=== PATIENT | male | born 1955 | race Caucasian/White ===

== ENCOUNTER 2018-12-01 13:06 | Inpatient (IN) | payer BC, MEDICARE ==
[2018-12-01 15:31] LABS: BASO % 0.4 % (0.0-2.0); EOS # 0.1 K/uL (0.0-0.7); HEMOGLOBIN 7.4 g/dL (12.0-18.0); LYMPH # 1.8 K/uL (1.0-4.3); LYMPH % 26.3 % (20.0-40.0); MEAN CELL VOLUME 100.1 fL (80.0-94.0); MEAN CORPUSCULAR HEMOGLOBIN 33.7 pg (27.0-31.0); MEAN CORPUSCULAR HGB CONC 33.7 g/dL (33.0-37.0); MEAN PLATELET VOLUME 6.5 fL (7.2-11.7); MONO # 0.9 K/uL (0.0-0.8); MONO % 13.3 % (0.0-10.0); RBC 2.19 Mil/uL (4.40-5.90); WHITE BLOOD COUNT 6.8 K/uL (4.8-10.8)
[2018-12-01 16:00] LABS: B-TYPE NATRIURETIC PEPTIDE 127 pg/mL (0-900)
[2018-12-01 16:03] LABS: GRANULAR CAST 3 /lpf (0-1); SQUAMOUS EPITHIAL < 1 /hpf (0-5); URINE BILIRUBIN NEGATIVE (NEGATIVE); URINE BLOOD 2+ (NEGATIVE); URINE CLARITY Hazy (Clear); URINE COLOR Yellow (YELLOW); URINE GLUCOSE (UA) NORMAL (Normal); URINE LEUKOCYTE ESTERASE NEG Leu/uL (Negative); URINE PROTEIN 2+ mg/dL (NEGATIVE); URINE UROBILINOGEN NORMAL mg/dL (0.2-1.0)
[2018-12-01 16:07] LABS: ALT/SGPT 7 U/L (21-72); AST/SGOT 39 U/L (17-59); BLOOD UREA NITROGEN 50 mg/dL (9-20); CALCIUM 9.6 mg/dl (8.6-10.4); GFR NON-AFRICAN AMERICAN 13
[2018-12-01 16:15] LABS: ALB/GLOB RATIO 0.5 (1.0-2.1)
--- NOTE | 2018-12-01 16:18 | RAD ---
Date of service: 12/01/2018 PROCEDURE: CHEST RADIOGRAPH, 1 VIEW HISTORY: SOB COMPARISON: None available. FINDINGS: LUNGS: The lungs are well inflated and clear. PLEURA: No pneumothorax or pleural effusion. CARDIOVASCULAR: The heart is normal in size. No aortic atherosclerotic calcifications present. OSSEOUS STRUCTURES: Within normal limits for the patient's age. VISUALIZED UPPER ABDOMEN: Normal. OTHER FINDINGS: None. IMPRESSION: No active pulmonary disease.
--- NOTE | 2018-12-01 16:59 | C.PDOC ---
History Of Present Illness 63 y/o male presents to the ER for evaluation of possible acute renal failure. Patient states that he had bloodwork done yesterday. Patient reports that he went to his PMD Dr. Faustin and he found that he had abnormal bloodwork. He notes that referred him to the ER for acute renal failure.Denies having fever,chills, CP,SOB, nausea, and vomiting. Time Seen by Provider: 12/01/18 14:41 Chief Complaint (Nursing): Medical Clearance History Per: Patient History/Exam Limitations: no limitations Onset/Duration Of Symptoms: Days Current Symptoms Are (Timing): Still Present Severity: Moderate Past Medical History Reviewed: Historical Data, Nursing Documentation, Vital Signs Vital Signs: Last Vital Signs Temp 98.4 F 12/01/18 13:19 Pulse 88 12/01/18 16:14 Resp 18 12/01/18 16:14 BP 163/88 H 12/01/18 16:14 Pulse Ox 100 12/01/18 16:14 - Medical History PMH: No Chronic Diseases Surgical History: Endoscopy Family History: States: No Known Family Hx - Social History Hx Alcohol Use: No Hx Substance Use: No - Immunization History Hx Tetanus Toxoid Vaccination: No Hx Influenza Vaccination: No Hx Pneumococcal Vaccination: No Review Of Systems Except As Marked, All Systems Reviewed And Found Negative. Constitutional: Negative for: Fever, Chills Cardiovascular: Negative for: Chest Pain Respiratory: Negative for: Shortness of Breath Gastrointestinal: Negative for: Nausea, Vomiting Physical Exam - Physical Exam Appears: Non-toxic, No Acute Distress Skin: Normal Color, Warm, Dry Head: Atraumatic, Normacephalic Eye(s): bilateral: Normal Inspection, PERRL, EOMI Nose: Normal Oral Mucosa: Moist Neck: Supple Chest: Symmetrical Cardiovascular: Rhythm Regular Respiratory: Normal Breath Sounds, No Rales, No Rhonchi, No Wheezing Gastrointestinal/Abdominal: Normal Exam, Soft, No Tenderness, No Guarding, No Rebound Extremity: Normal ROM Neurological/Psych: Oriented x3, Normal Speech ED Course And Treatment - Laboratory Results Result Diagrams: 12/01/18 15:26 12/01/18 15:26 Lab Results: Troponin I < 0.0120 ng/mL (0.00-0.120) 12/01/18 15:26 NT-Pro-B Natriuret Pep 127 pg/mL (0-900) 12/01/18 15:26 Total Bilirubin 0.5 mg/dL (0.2-1.3) 12/01/18 15:26 AST 39 U/L (17-59) 12/01/18 15:26 ALT 7 U/L (21-72) L 12/01/18 15:26 Alkaline Phosphatase 61 U/L (38-126) 12/01/18 15:26 Total Protein > 11.0 g/dL (6.3-8.3) H 12/01/18 15:26 Albumin 4.0 g/dL (3.5-5.0) 12/01/18 15:26 Globulin 8.4 gm/dL (2.2-3.9) H 12/01/18 15:26 Albumin/Globulin Ratio 0.5 (1.0-2.1) L 12/01/18 15:26 Urine Color Yellow (YELLOW) 12/01/18 15:49 Urine Clarity Hazy (Clear) 12/01/18 15:49 Urine pH 5.0 (5.0-8.0) 12/01/18 15:49 Ur Specific [place] 1.014 (1.003-1.030) 12/01/18 15:49 Urine Protein 2+ mg/dL (NEGATIVE) H 12/01/18 15:49 Urine Glucose (UA) Normal mg/dL (Normal) 12/01/18 15:49 Urine Ketones Negative mg/dL (NEGATIVE) 12/01/18 15:49 Urine Blood 2+ (NEGATIVE) H 12/01/18 15:49 Urine Nitrate Negative (NEGATIVE) 12/01/18 15:49 Urine Bilirubin Negative (NEGATIVE) 12/01/18 15:49 Urine Urobilinogen Normal mg/dL (0.2-1.0) 12/01/18 15:49 Ur Leukocyte Esterase Neg Javon/uL (Negative) 12/01/18 15:49 Urine WBC (Auto) 4 /hpf (0-5) 12/01/18 15:49 Urine RBC (Auto) 19 /hpf (0-3) H 12/01/18 15:49 Ur Squamous Epith Cells < 1 /hpf (0-5) 12/01/18 15:49 Granular Casts (Auto) 3 /lpf (0-1) 12/01/18 15:49 ECG: Interpreted By Me, Viewed By Me ECG Rhythm: Sinus Rhythm Rate From EC O2 Sat by Pulse Oximetry: 100 (RA) Pulse Ox Interpretation: Normal Medical Decision Making Medical Decision Making: Plan: --Labs --UA --ECG --CXR Updates: 1654: Called . 1719: Called Dr. Faustin again. 1746: Called for the third time. 1753: agrees to accept patient. Said if calls back to switch back to ' service. 1821: Dr. Faustin called back and agrees to admit patient. 1823: Dr. Louise informed that patient will be switched to Dr. Faustin' service Disposition - Disposition Disposition: HOSPITALIZED Disposition Time: 17:55 Condition: STABLE - Clinical Impression Clinical Impression: ARF (acute renal failure), Anemia - Scribe Statement The provider has reviewed the documentation as recorded by the Karlaibdalila Lord Provider Attestation: All medical record entries made by the Karlaibe were at my direction and personally dictated by me. I have reviewed the chart and agree that the record accurately reflects my personal performance of the history, physical exam, medical decision making, and the department course for this patient. I have also personally directed, reviewed, and agree with the discharge instructions and disposition.
[2018-12-01 19:48] VITALS: RESP 20
--- NOTE | 2018-12-02 08:50 | CP.PCM.HP ---
History of Present Illness - History of Present Illness History of Present Illness: CC: Abn labs 63 y/o male with no medical check up. Patient occasional fatigue and SOB when he climb stairs. he was seen for physical and noted to have Hg of 7 and gopi inc Crea. Pt was advise ER eval Present on Admission - Present on Admission Any Indicators Present on Admission: Yes History of DVT/PE: No History of Uncontrolled Diabetes: No Urinary Catheter: No Decubitus Ulcer Present: No Review of Systems - Review of Systems Systems not reviewed;Unavailable: Acuity of Condition - Constitutional Constitutional: absent: Anorexia, Headache, Increased Appetite, Night Sweats, Sleep Apnea - EENT Eyes: absent: Change in Vision, Exophthalmos, Pain, Spots in Vision Ears: absent: Decreased Hearing, Tinnitus, Disequilibrium, Dizziness Nose/Mouth/Throat: absent: Epistaxis, Nasal Congestion, Nose Pain, Post Nasal Drip, Change in Voice, Dysphagia, Mouth Pain - Cardiovascular Cardiovascular: absent: Chest Pain, Diaphoresis, Dyspnea, Edema - Respiratory Respiratory: absent: Cough, Hemoptysis, Snoring, Chest Congestion, Excessive Mucous Production, Change in Mucous Color - Gastrointestinal Gastrointestinal: absent: Abdominal Pain, Diarrhea, Dyspepsia, Dysphagia, Heartburn - Genitourinary Genitourinary: absent: Dysuria, Pyuria, Nocturia, Urinary Hesitance - Musculoskeletal Musculoskeletal: Tingling. absent: Abnormal Gait, Back Pain, Joint Swelling, Loss of Height, Muscle Weakness, Myalgias - Integumentary Integumentary: absent: Dry Skin - Neurological Neurological: absent: Abnormal Hearing, Confusion, Focal Weakness, Loss of Vision, Restless Legs Past Patient History - Infectious Disease Hx of Infectious Diseases: None - Past Medical History & Family History Past Medical History?: Yes - Past Social History Smoking Status: Former Smoker - MUSCULOSKELETAL/RHEUMATOLOGICAL Hx Falls: No - PSYCHIATRIC Hx Substance Use: No - SURGICAL HISTORY Hx Surgeries: Yes - ANESTHESIA Hx Anesthesia: Yes Hx Anesthesia Reactions: No Meds Allergies/Adverse Reactions: Allergies Allergy/AdvReac Type Severity Reaction Status Date / Time No Known Allergies Allergy Verified 12/01/18 13:21 Physical Exam - Constitutional Appears: Well - Eye Exam Eye Exam: Normal appearance - ENT Exam ENT Exam: Mucous Membranes Moist - Neck Exam Neck exam: Positive for: Full Rom. Negative for: Lymphadenopathy, Normal Inspection, Tenderness - Respiratory Exam Respiratory Exam: Clear to Auscultation Bilateral. absent: Rales, Rhonchi, Wheezes - Cardiovascular Exam Cardiovascular Exam: REGULAR RHYTHM, +S1, +S2. absent: Gallop, JVD, Systolic Murmur - GI/Abdominal Exam GI & Abdominal Exam: Soft. absent: Mass, Tenderness - Neurological Exam Neurological exam: Alert, CN II-XII Intact, Oriented x3 Results - Vital Signs Recent Vital Signs: Last Vital Signs Temp 98.1 F 12/02/18 08:00 Pulse 77 12/02/18 08:00 Resp 20 12/02/18 08:00 BP 156/78 H 12/02/18 08:00 Pulse Ox 97 12/02/18 08:00 - Labs Result Diagrams: 12/01/18 15:26 12/01/18 15:26 Labs: Laboratory Results - last 24 hr 12/01/18 12/01/18 12/01/18 15:26 15:26 15:49 WBC 6.8 RBC 2.19 L Hgb 7.4 L Hct 21.9 L MCV 100.1 H MCH 33.7 H MCHC 33.7 RDW 14.0 Plt Count 301 MPV 6.5 L Neut % (Auto) 58.0 Lymph % (Auto) 26.3 [place] % (Auto) 13.3 H Eos % (Auto) 2.0 Baso % (Auto) 0.4 Neut # (Auto) 4.0 Lymph # (Auto) 1.8 [place] # (Auto) 0.9 H Eos # (Auto) 0.1 Baso # (Auto) 0.0 Sodium 138 Potassium 4.7 Chloride 109 H Carbon Dioxide 22 Anion Gap 11 BUN 50 H Creatinine 4.7 H Est GFR ( Amer) 15 Est GFR (Non-Af Amer) 13 Random Glucose 134 H Calcium 9.6 Total Bilirubin 0.5 AST 39 ALT 7 L Alkaline Phosphatase 61 Troponin I < 0.0120 NT-Pro-B Natriuret Pep 127 Total Protein > 11.0 H Albumin 4.0 Globulin 8.4 H Albumin/Globulin Ratio 0.5 L Urine Color Yellow Urine Clarity Hazy Urine pH 5.0 Ur Specific [place] 1.014 Urine Protein 2+ H Urine Glucose (UA) Normal Urine Ketones Negative Urine Blood 2+ H Urine Nitrate Negative Urine Bilirubin Negative Urine Urobilinogen Normal Ur Leukocyte Esterase Neg Urine WBC (Auto) 4 Urine RBC (Auto) 19 H Ur Squamous Epith Cells < 1 Granular Casts (Auto) 3 - EKG Data EKG Interpreted by: Myself EKG shows normal: Sinus rhythm Rate: Normal Assessment & Plan - Assessment and Plan (Free Text) Assessment: Symptomatic anemia; ESRD ? etio Await GI/ renal opinion DVT prophy
[2018-12-02 11:39] LABS: BASO % 0.4 % (0.0-2.0); EOS # 0.2 K/uL (0.0-0.7); EOS % 2.1 % (0.0-4.0); HEMOGLOBIN 7.4 g/dL (12.0-18.0); LYMPH # 2.7 K/uL (1.0-4.3); MEAN CELL VOLUME 99.6 fL (80.0-94.0); MEAN CORPUSCULAR HEMOGLOBIN 34.4 pg (27.0-31.0); MEAN CORPUSCULAR HGB CONC 34.5 g/dL (33.0-37.0); MEAN PLATELET VOLUME 6.5 fL (7.2-11.7); MONO % 12.9 % (0.0-10.0); NEUT # 3.8 K/uL (1.8-7.0); NEUT % 49.6 % (50.0-75.0); NRBC % 0.2 % (0.0-2.0); RBC 2.15 Mil/uL (4.40-5.90); RED CELL DISTRIBUTION WIDTH 13.7 % (11.5-14.5); WHITE BLOOD COUNT 7.7 K/uL (4.8-10.8)
[2018-12-02 11:46] LABS: CALCIUM 9.2 mg/dl (8.6-10.4)
--- NOTE | 2018-12-02 12:25 | CP.PCM.CON ---
History of Present Illness - History of Present Illness History of Present Illness: CC: anemia HPI: GI consult requested for new onset anemia and renal failure. Patient denies change in bowel habits, blood in stool, abdominal pain. Had Colonoscopy "a long time ago" . Denies any medical history. Fair historian. Anemia is macrocytic. Review of Systems - Review of Systems All systems: reviewed and no additional remarkable complaints except (leg pain w hen walking upstairs) Past Patient History - Infectious Disease Hx of Infectious Diseases: None - Past Medical History & Family History Past Medical History?: Yes - Past Social History Smoking Status: Former Smoker Alcohol: None - CARDIAC Hx Cardiac Disorders: No Hx Heart Attack: No - PULMONARY Hx Respiratory Disorders: No - NEUROLOGICAL HX Cerebrovascular Accident: No - HEMATOLOGICAL/ONCOLOGICAL Hx Anemia: No - MUSCULOSKELETAL/RHEUMATOLOGICAL Hx Falls: No - GASTROINTESTINAL Hx Gastrointestinal Disorders: No - PSYCHIATRIC Hx Substance Use: No - SURGICAL HISTORY Hx Surgeries: Yes (thumb surgery, pt can not elaborate) - ANESTHESIA Hx Anesthesia: Yes Hx Anesthesia Reactions: No Meds Allergies/Adverse Reactions: Allergies Allergy/AdvReac Type Severity Reaction Status Date / Time No Known Allergies Allergy Verified 12/01/18 13:21 - Medications Medications: Current Medications Heparin Sodium (Porcine) (Heparin) 5,000 units SC Q8 ESPERANZA Rosuvastatin Calcium (Crestor) 10 mg PO HS ESPERANZA Physical Exam - Constitutional Appears: Well, No Acute Distress - Head Exam Head Exam: ATRAUMATIC, NORMOCEPHALIC - Eye Exam Eye Exam: absent: Scleral icterus - Neck Exam Neck exam: Positive for: Normal Inspection - Respiratory Exam Respiratory Exam: Clear to Auscultation Bilateral - Cardiovascular Exam Cardiovascular Exam: REGULAR RHYTHM - GI/Abdominal Exam GI & Abdominal Exam: Soft. absent: Organomegaly, Tenderness - Rectal Exam Rectal Exam: Deferred - Extremities Exam Extremities exam: Positive for: normal inspection - Neurological Exam Neurological exam: Alert, Oriented x3 - Psychiatric Exam Psychiatric exam: Normal Affect, Normal Mood - Skin Skin Exam: Normal Color Results - Vital Signs Recent Vital Signs: Last Vital Signs Temp 98.1 F 12/02/18 08:00 Pulse 77 12/02/18 08:00 Resp 20 12/02/18 08:00 BP 156/78 H 12/02/18 08:00 Pulse Ox 97 12/02/18 08:00 - Labs Result Diagrams: 12/02/18 11:24 12/02/18 11:24 Labs: Laboratory Results - last 24 hr 12/01/18 12/01/18 12/01/18 15:26 15:26 15:49 WBC 6.8 RBC 2.19 L Hgb 7.4 L Hct 21.9 L MCV 100.1 H MCH 33.7 H MCHC 33.7 RDW 14.0 Plt Count 301 MPV 6.5 L Neut % (Auto) 58.0 Lymph % (Auto) 26.3 [place] % (Auto) 13.3 H Eos % (Auto) 2.0 Baso % (Auto) 0.4 Neut # (Auto) 4.0 Lymph # (Auto) 1.8 [place] # (Auto) 0.9 H Eos # (Auto) 0.1 Baso # (Auto) 0.0 Sodium 138 Potassium 4.7 Chloride 109 H Carbon Dioxide 22 Anion Gap 11 BUN 50 H Creatinine 4.7 H Est GFR ( Amer) 15 Est GFR (Non-Af Amer) 13 Random Glucose 134 H Calcium 9.6 Total Bilirubin 0.5 AST 39 ALT 7 L Alkaline Phosphatase 61 Troponin I < 0.0120 NT-Pro-B Natriuret Pep 127 Total Protein > 11.0 H Albumin 4.0 Globulin 8.4 H Albumin/Globulin Ratio 0.5 L Urine Color Yellow Urine Clarity Hazy Urine pH 5.0 Ur Specific [place] 1.014 Urine Protein 2+ H Urine Glucose (UA) Normal Urine Ketones Negative Urine Blood 2+ H Urine Nitrate Negative Urine Bilirubin Negative Urine Urobilinogen Normal Ur Leukocyte Esterase Neg Urine WBC (Auto) 4 Urine RBC (Auto) 19 H Ur Squamous Epith Cells < 1 Granular Casts (Auto) 3 12/02/18 12/02/18 11:24 11:24 WBC 7.7 RBC 2.15 L Hgb 7.4 L Hct 21.5 L MCV 99.6 H MCH 34.4 H MCHC 34.5 RDW 13.7 Plt Count 283 MPV 6.5 L Neut % (Auto) 49.6 L Lymph % (Auto) 35.0 [place] % (Auto) 12.9 H Eos % (Auto) 2.1 Baso % (Auto) 0.4 Neut # (Auto) 3.8 Lymph # (Auto) 2.7 [place] # (Auto) 1.0 H Eos # (Auto) 0.2 Baso # (Auto) 0.0 Sodium 137 Potassium 4.5 Chloride 106 Carbon Dioxide 26 Anion Gap 10 BUN 47 H Creatinine 4.4 H Est GFR ( Amer) 16 Est GFR (Non-Af Amer) 14 Random Glucose 109 Calcium 9.2 Total Bilirubin AST ALT Alkaline Phosphatase Troponin I NT-Pro-B Natriuret Pep Total Protein Albumin Globulin Albumin/Globulin Ratio Urine Color Urine Clarity Urine pH Ur Specific [place] Urine Protein Urine Glucose (UA) Urine Ketones Urine Blood Urine Nitrate Urine Bilirubin Urine Urobilinogen Ur Leukocyte Esterase Urine WBC (Auto) Urine RBC (Auto) Ur Squamous Epith Cells Granular Casts (Auto) Assessment & Plan (1) ARF (acute renal failure) Assessment and Plan: await renal consult Status: Acute (2) Anemia Assessment and Plan: Likely anemia of chronic disease, renal failure. Does not appear to be an iron deficiency anemia Rec: Check stool occult blood and iron indices, reticulocyte count Check B12 and Folate levels Depending on results of above, pt may need GI workuip or Hematology consult Status: Acute - Date & Time Date: 12/02/18 Time: 12:29
--- NOTE | 2018-12-02 13:23 | CP.PCM.CON ---
History of Present Illness - History of Present Illness History of Present Illness: 63 y/o male presents to the ER for evaluation of possible acute renal failure. Patient states that he had bloodwork done yesterday. Patient reports that he went to his PMD Dr. Faustin and he found that he had abnormal bloodwork. He notes that referred him to the ER for acute renal failure.Denies having fever,chills, CP,SOB, nausea, and vomiting. No dysuria, hematuria Denies significant PMH- no HTN, DM, proteinuria No PSH Social- former smoking; denies ETOH, illicits FH- no CKD ROS- recent increase in fatigue, cramps on climbing stairs; otherwise negative Meds- none Review of Systems - Constitutional Constitutional: Fatigue, Weakness - EENT Eyes: absent: As Per HPI, Blind Spots, Blurred Vision, Change in Vision, Decreased Night Vision, Diplopia, Discharge, Dry Eye, Exophthalmos, Floaters, Irritation, Itchy Eyes, Loss of Peripheral Vision, Pain, Photophobia, Requires Corrective Lenses, Sees Flashes, Spots in Vision, Tunnel Vision, Other Visual Disturbances, Loss of Vision, Other Ears: absent: As Per HPI, Decreased Hearing, Ear Discharge, Ear Pain, Tinnitus, Abnormal Hearing, Disequilibrium, Dizziness, Other Nose/Mouth/Throat: absent: As Per HPI, Epistaxis, Nasal Congestion, Nasal Discharge, Nasal Obstruction, Nasal Trauma, Nose Pain, Post Nasal Drip, Sinus Pain, Sinus Pressure, Bleeding Gums, Change in Voice, Dental Pain, Dry Mouth, Dysphagia, Halitosis, Hoarsness, Lip Swelling, Mouth Lesions, Mouth Pain, Odynophagia, Sore Throat, Throat Swelling, Tongue Swelling, Facial Pain, Neck Pain, Neck Mass, Other - Cardiovascular Cardiovascular: Dyspnea on Exertion - Respiratory Respiratory: Dyspnea on Exertion - Gastrointestinal Gastrointestinal: absent: As Per HPI, Abdominal Pain, Belching, Bloating, Change in Bowel Habits, Change in Stool Character, Coffee Ground Emesis, Constipation, Cramping, Diarrhea, Dyspepsia, Dysphagia, Early Satiety, Excessive Flatus, Fecal Incontinence, Heartburn, Hematemesis, Hematochezia, Loose Stools, Melena, Nausea, Odynophagia, Temesmus, Vomiting, Other - Genitourinary Genitourinary: absent: As Per HPI, Change in Urinary Stream, Difficulty Urinating, Dysuria, Flank Pain, Hematuria, Pyuria, Nocturia, Urinary Incontinence, Urinary Frequency, Urinary Hesitance, Urinary Urgency, Voiding Freq/Small Amts, Freq UTI, Hx Renal/Bladder Calculi, Hx /Renal Surgery, Bladder Distension, Other - Musculoskeletal Musculoskeletal: Muscle Cramps, Muscle Weakness, Myalgias Past Patient History - Infectious Disease Hx of Infectious Diseases: None - Past Medical History & Family History Past Medical History?: Yes Past Family History: Reviewed and not pertinent - Past Social History Smoking Status: Former Smoker Chewing Tobacco Use: No Cigar Use: No Alcohol: None Drugs: Denies Home Situation {Lives}: With Family Domestic Violence: Negative - CARDIAC Hx Cardiac Disorders: No Hx Heart Attack: No - PULMONARY Hx Respiratory Disorders: No - NEUROLOGICAL HX Cerebrovascular Accident: No - HEMATOLOGICAL/ONCOLOGICAL Hx Anemia: No - MUSCULOSKELETAL/RHEUMATOLOGICAL Hx Falls: No - GASTROINTESTINAL Hx Gastrointestinal Disorders: No - PSYCHIATRIC Hx Substance Use: No - SURGICAL HISTORY Hx Surgeries: Yes (thumb surgery, pt can not elaborate) - ANESTHESIA Hx Anesthesia: Yes Hx Anesthesia Reactions: No Meds Allergies/Adverse Reactions: Allergies Allergy/AdvReac Type Severity Reaction Status Date / Time No Known Allergies Allergy Verified 12/01/18 13:21 - Medications Medications: Current Medications Heparin Sodium (Porcine) (Heparin) 5,000 units SC Q8 ESPERANZA Rosuvastatin Calcium (Crestor) 10 mg PO HS ESPERANZA Physical Exam - Constitutional Appears: No Acute Distress, Chronically Ill - Head Exam Head Exam: ATRAUMATIC, NORMAL INSPECTION - Eye Exam Eye Exam: EOMI, Normal appearance - Neck Exam Neck exam: Positive for: Normal Inspection. Negative for: Tenderness - Respiratory Exam Respiratory Exam: Clear to Auscultation Bilateral, NORMAL BREATHING PATTERN - Cardiovascular Exam Cardiovascular Exam: REGULAR RHYTHM, +S1 - GI/Abdominal Exam GI & Abdominal Exam: Soft. absent: Tenderness - Extremities Exam Extremities exam: Positive for: normal inspection. Negative for: tenderness - Neurological Exam Neurological exam: Alert - Skin Skin Exam: Dry, Warm Results - Vital Signs Recent Vital Signs: Last Vital Signs Temp 98.1 F 12/02/18 08:00 Pulse 77 12/02/18 08:00 Resp 20 12/02/18 08:00 BP 156/78 H 12/02/18 08:00 Pulse Ox 97 12/02/18 08:00 - Labs Result Diagrams: 12/02/18 11:24 12/02/18 11:24 Labs: Laboratory Results - last 24 hr 12/01/18 12/01/18 12/01/18 15:26 15:26 15:49 WBC 6.8 RBC 2.19 L Hgb 7.4 L Hct 21.9 L MCV 100.1 H MCH 33.7 H MCHC 33.7 RDW 14.0 Plt Count 301 MPV 6.5 L Neut % (Auto) 58.0 Lymph % (Auto) 26.3 [place] % (Auto) 13.3 H Eos % (Auto) 2.0 Baso % (Auto) 0.4 Neut # (Auto) 4.0 Lymph # (Auto) 1.8 [place] # (Auto) 0.9 H Eos # (Auto) 0.1 Baso # (Auto) 0.0 Sodium 138 Potassium 4.7 Chloride 109 H Carbon Dioxide 22 Anion Gap 11 BUN 50 H Creatinine 4.7 H Est GFR ( Amer) 15 Est GFR (Non-Af Amer) 13 Random Glucose 134 H Calcium 9.6 Total Bilirubin 0.5 AST 39 ALT 7 L Alkaline Phosphatase 61 Troponin I < 0.0120 NT-Pro-B Natriuret Pep 127 Total Protein > 11.0 H Albumin 4.0 Globulin 8.4 H Albumin/Globulin Ratio 0.5 L Urine Color Yellow Urine Clarity Hazy Urine pH 5.0 Ur Specific [place] 1.014 Urine Protein 2+ H Urine Glucose (UA) Normal Urine Ketones Negative Urine Blood 2+ H Urine Nitrate Negative Urine Bilirubin Negative Urine Urobilinogen Normal Ur Leukocyte Esterase Neg Urine WBC (Auto) 4 Urine RBC (Auto) 19 H Ur Squamous Epith Cells < 1 Granular Casts (Auto) 3 12/02/18 12/02/18 11:24 11:24 WBC 7.7 RBC 2.15 L Hgb 7.4 L Hct 21.5 L MCV 99.6 H MCH 34.4 H MCHC 34.5 RDW 13.7 Plt Count 283 MPV 6.5 L Neut % (Auto) 49.6 L Lymph % (Auto) 35.0 [place] % (Auto) 12.9 H Eos % (Auto) 2.1 Baso % (Auto) 0.4 Neut # (Auto) 3.8 Lymph # (Auto) 2.7 [place] # (Auto) 1.0 H Eos # (Auto) 0.2 Baso # (Auto) 0.0 Sodium 137 Potassium 4.5 Chloride 106 Carbon Dioxide 26 Anion Gap 10 BUN 47 H Creatinine 4.4 H Est GFR ( Amer) 16 Est GFR (Non-Af Amer) 14 Random Glucose 109 Calcium 9.2 Total Bilirubin AST ALT Alkaline Phosphatase Troponin I NT-Pro-B Natriuret Pep Total Protein Albumin Globulin Albumin/Globulin Ratio Urine Color Urine Clarity Urine pH Ur Specific [place] Urine Protein Urine Glucose (UA) Urine Ketones Urine Blood Urine Nitrate Urine Bilirubin Urine Urobilinogen Ur Leukocyte Esterase Urine WBC (Auto) Urine RBC (Auto) Ur Squamous Epith Cells Granular Casts (Auto) Assessment & Plan (1) Chronic kidney disease, stage IV (severe) Status: Acute (2) ARF (acute renal failure) Status: Acute (3) Anemia Status: Acute (4) Elevated total protein Status: Acute - Assessment and Plan (Free Text) Plan: renal US proteiuria quantification SPEP immunofixation anemia workup
[2018-12-02 14:09] LABS: IRON 119 ug/dL (49-181)
[2018-12-02 14:17] LABS: TOTAL IRON BINDING CAPACITY 256 ug/dL (250-450)
[2018-12-02 14:18] LABS: % IRON SATURATION 46 (20-55)
--- NOTE | 2018-12-02 16:17 | US ---
Date of service: 12/02/2018 PROCEDURE: Ultrasound of the Kidneys HISTORY: Cr 4.7 COMPARISON: None available. TECHNIQUE: Sonogram of the kidneys. FINDINGS: RIGHT KIDNEY: Measures: 10.0 x 4.3 x 4.2 cm. Normal in size, and contour Some increased cortical echogenicity inferred. No hydronephrosis. A cyst with possible tiny calcification along its posterior wall this question-vascular calcification here also is a consideration. This cyst here measures 8 x 6 x 8 mm. LEFT KIDNEY: Measures: 10.6 x 5.5 x 5.4 cm. Normal in size, and contour. Some increased left renal cortical echogenicity is possible. No hydronephrosis noted. A 10 x 6 x 7 mm lower pole cyst noted pole 6 x 8 x 7 mm cyst noted. The cysts has areas of tiny hyper echogenicity with equivocal shadowing-calcifications tiny within the wall are some considerations. Nearby vascular calcifications can also simulate this. OTHER FINDINGS: The aorta is not clearly identified due to obscuring bowel gas. The bladder is only minimally distended. Assessment of its wall thickness is not possible. A heterogeneous enlarged prostate measuring 5.4 x 4.2 x 5.1 cm giving an overall prostate volume of 60.17 mL is noted. IMPRESSION: No hydronephrosis. Small bilateral renal parenchymal cysts with wall hyper echogenicities possibly relating to tiny wall calcifications. Some adjacent vascular calcifications can simulate this. Heterogeneous enlarged prostate with calcifications inferred. The distension of the bladder limits optimal evaluation of its wall. The exam is not the assess for pre and postvoid urine volume. Correlation with PSA. Consider urological consultation
--- NOTE | 2018-12-02 18:56 | CARD ---
APPROVED REPORT Date of service: 12/01/2018 EKG Measurement Heart [id number] <Conclusion> Normal sinus rhythm Normal ECG
--- NOTE | 2018-12-02 19:08 | CP.PCM.CON ---
History of Present Illness - History of Present Illness History of Present Illness: Urology consultation IMP: reanl failure Anemia Elevated PSA BPH on exam full note dictated job# [id number] Past Patient History - Infectious Disease Hx of Infectious Diseases: None - Past Medical History & Family History Past Medical History?: Yes Past Family History: Reviewed and not pertinent - Past Social History Smoking Status: Former Smoker Chewing Tobacco Use: No Cigar Use: No Alcohol: None Drugs: Denies Home Situation {Lives}: With Family Domestic Violence: Negative - CARDIAC Hx Cardiac Disorders: No Hx Heart Attack: No - PULMONARY Hx Respiratory Disorders: No - NEUROLOGICAL HX Cerebrovascular Accident: No - HEMATOLOGICAL/ONCOLOGICAL Hx Anemia: No - MUSCULOSKELETAL/RHEUMATOLOGICAL Hx Falls: No - GASTROINTESTINAL Hx Gastrointestinal Disorders: No - PSYCHIATRIC Hx Substance Use: No - SURGICAL HISTORY Hx Surgeries: Yes (thumb surgery, pt can not elaborate) - ANESTHESIA Hx Anesthesia: Yes Hx Anesthesia Reactions: No Meds Allergies/Adverse Reactions: Allergies Allergy/AdvReac Type Severity Reaction Status Date / Time No Known Allergies Allergy Verified 12/01/18 13:21 - Medications Medications: Current Medications Heparin Sodium (Porcine) (Heparin) 5,000 units SC Q8 [facility] Last Admin: 12/02/18 14:39 Dose: 5,000 units Influenza Virus Vaccine (Flucelvax Quad [id number] Syr) 60 mcg IM .ONCE ONE Stop: 12/03/18 10:01 Pneumococcal Polyvalent Vaccine (Pneumovax 23 Vaccine) 0.5 ml IM .ONCE ONE Stop: 12/03/18 10:01 Rosuvastatin Calcium (Crestor) 10 mg PO HS [facility] Zolpidem Tartrate (Ambien) 5 mg PO HS [facility] Results - Vital Signs Recent Vital Signs: Last Vital Signs Temp 98.1 F 12/02/18 16:00 Pulse 94 H 12/02/18 16:00 Resp 20 12/02/18 16:00 BP 160/77 H 12/02/18 16:00 Pulse Ox 99 12/02/18 16:00 - Labs Result Diagrams: 12/02/18 11:24 12/02/18 11:24 Labs: Laboratory Results - last 24 hr 12/02/18 12/02/18 12/02/18 11:24 11:24 13:38 WBC 7.7 RBC 2.15 L Hgb 7.4 L Hct 21.5 L MCV 99.6 H MCH 34.4 H MCHC 34.5 RDW 13.7 Plt Count 283 MPV 6.5 L Neut % (Auto) 49.6 L Lymph % (Auto) 35.0 [place] % (Auto) 12.9 H Eos % (Auto) 2.1 Baso % (Auto) 0.4 Neut # (Auto) 3.8 Lymph # (Auto) 2.7 [place] # (Auto) 1.0 H Eos # (Auto) 0.2 Baso # (Auto) 0.0 Sodium 137 Potassium 4.5 Chloride 106 Carbon Dioxide 26 Anion Gap 10 BUN 47 H Creatinine 4.4 H Est GFR ( Amer) 16 Est GFR (Non-Af Amer) 14 Random Glucose 109 Calcium 9.2 Iron 119 TIBC 256 % Saturation 46 Ferritin Stool Occult Blood 12/02/18 12/02/18 13:38 14:54 WBC RBC Hgb Hct MCV MCH MCHC RDW Plt Count MPV Neut % (Auto) Lymph % (Auto) [place] % (Auto) Eos % (Auto) Baso % (Auto) Neut # (Auto) Lymph # (Auto) [place] # (Auto) Eos # (Auto) Baso # (Auto) Sodium Potassium Chloride Carbon Dioxide Anion Gap BUN Creatinine Est GFR ( Amer) Est GFR (Non-Af Amer) Random Glucose Calcium Iron TIBC % Saturation Ferritin 422.0 Stool Occult Blood Negative Assessment & Plan - Date & Time Date: 12/02/18 Time: 13:15
--- NOTE | 2018-12-03 05:52 | CON ---
DATE: 12/02/2018 UROLOGY CONSULTATION UROLOGY CONSULTATION REQUESTED BY: Dr. Faustin. UROLOGY CONSULTATION FILLED BY: Tiffany North MD REASON FOR CONSULTATION: Elevated PSA, renal failure. HISTORY OF PRESENT ILLNESS: The patient is a 63-year-old male, admitted for renal failure. The patient is in otherwise good health. The patient reports that he has no history of urinary tract infection or history of urolithiasis. No recent pain. No recent nausea or vomiting. No recent fever or rigors. PAST SURGICAL HISTORY: The patient reports that he had previous colonoscopy. SOCIAL HISTORY: The patient lives with his . He has one child. The patient works as a mixer/splinter. The patient reports no chest pain. No blackout, seizure or strokes. The patient is otherwise well. MEDICATIONS: He takes vitamins. Otherwise no medications. The patient went to the emergency room. He was found to have renal failure. See attached lab reports. LABORATORY DATA: Hematocrit 21.9, platelet count 301,000. BUN 50, creatinine 4.7. Total protein is 11. Urinalysis revealed 4 white blood cells and 19 red blood cells per high-power field. The patient was also reported to have elevated serum PSA of 5.4. Urology consultation is thus obtained. PHYSICAL EXAMINATION: GENERAL: The patient is a well-developed, well-nourished male, appearing his stated age. The patient is awake and alert. ABDOMEN: Soft, nontender, nondistended. No mass or organomegaly. BACK: No CVA tenderness. GENITALIA: Normal male. Scrotal contents without inflammation. Testes descended bilaterally. RECTAL: Normal sphincter tone. Prostate is mildly enlarged, approximately 30 to 40 g in size, without fixation, induration or nodularity. IMPRESSION: Elevated prostate-specific antigen. Differential diagnoses include benign prostatic hypertrophy, prostatitis or prostate cancer. Abnormal urinalysis noted including pyuria and microhematuria. Renal failure and anemia are noted. Etiology of renal failure will be determined. There may be intrinsic renal disease. Also possibility is prerenal as well as post renal causes. The patient may have a monoclonal gammopathy, he may have multiple myeloma. RECOMMENDATIONS AND PLAN: Repeat urinalysis. Urine culture. Urine cytology. Repeat serum PSA, total and percent free. Priority at present is to evaluate the patient's renal failure and anemia. Renal ultrasound as well should be obtained. Further therapy to follow according to the patient's clinical course as well as results of above. Thank you for recommending the patient for urology consultation. Tiffany North MD cc: Dr. Faustin
[2018-12-03 08:31] LABS: ALBUMIN 3.9 g/dL (3.5-5.0); ALT/SGPT < 6 U/L (21-72); AST/SGOT 37 U/L (17-59); BLOOD UREA NITROGEN 41 mg/dL (9-20); CALCIUM 8.7 mg/dl (8.6-10.4); GFR NON-AFRICAN AMERICAN 15
[2018-12-03 08:47] LABS: ALB/GLOB RATIO 0.5 (1.0-2.1)
[2018-12-03] MEDS ORDERED: Influenza Vaccine 60 mcg/0.5 mL SYR (4YR UP) IM ONE (10:00)
[2018-12-03] MEDS ORDERED: Pneumococcal 23-Valent Vaccine IM ONE ×2 (10:00→12:39)
--- NOTE | 2018-12-03 10:17 | CP.PCM.PN ---
Subjective - Date & Time of Evaluation Date of Evaluation: 12/03/18 Time of Evaluation: 10:15 - Subjective Subjective: Alert, no new complaint creat sl better-4.1 renal US- no hydro Seen by for BPH Awaiting paraproteinemia workup results still very anemic if dx unclear might need kidney bx Objective - Vital Signs/Intake and Output Vital Signs (last 24 hours): Temp Pulse Resp BP Pulse Ox 98.1 F 90 20 140/80 98 12/03/18 08:30 12/03/18 08:30 12/03/18 08:30 12/03/18 08:30 12/03/18 08:30 Intake and Output: 12/03/18 12/03/18 06:59 18:59 Intake Total 240 Balance 240 - Medications Medications: Current Medications Heparin Sodium (Porcine) (Heparin) 5,000 units SC Q8 [facility] Last Admin: 12/03/18 06:17 Dose: 5,000 units Rosuvastatin Calcium (Crestor) 10 mg PO HS [facility] Last Admin: 12/02/18 21:09 Dose: 10 mg Zolpidem Tartrate (Ambien) 5 mg PO [facility] Last Admin: 12/02/18 21:09 Dose: 5 mg - Labs Labs: 12/02/18 11:24 12/03/18 07:43 - Constitutional Appears: No Acute Distress, Chronically Ill - Head Exam Head Exam: ATRAUMATIC, NORMAL INSPECTION - Eye Exam Eye Exam: EOMI, Normal appearance - Neck Exam Neck Exam: Normal Inspection. absent: Tenderness - Respiratory Exam Respiratory Exam: Clear to Ausculation Bilateral, NORMAL BREATHING PATTERN - Cardiovascular Exam Cardiovascular Exam: REGULAR RHYTHM, +S1 - GI/Abdominal Exam GI & Abdominal Exam: Soft. absent: Tenderness - Extremities Exam Extremities Exam: Normal Inspection. absent: Tenderness - Neurological Exam Neurological Exam: Awake, CN II-XII Intact - Skin Skin Exam: Dry, Warm Assessment and Plan (1) Chronic kidney disease, stage IV (severe) Status: Acute (2) ARF (acute renal failure) Status: Acute (3) Anemia Status: Acute (4) Elevated total protein Status: Acute - Assessment and Plan (Free Text) Plan: Await results workup serial chemistries reserve kidney bx if no dx
[2018-12-03] MEDS: Sodium Chloride 0.9% 1,000 ML IV SCH ×2 (10:59→23:50)
--- NOTE | 2018-12-03 12:11 | CP.PCM.PN ---
Subjective - Date & Time of Evaluation Date of Evaluation: 12/03/18 Time of Evaluation: 11:15 - Subjective Subjective: f/u anemia. Denies fever, chills, SZ, CP, SOB, DIEHL, cough Objective - Vital Signs/Intake and Output Vital Signs (last 24 hours): Temp Pulse Resp BP Pulse Ox 98.1 F 90 20 140/80 98 12/03/18 08:30 12/03/18 08:30 12/03/18 08:30 12/03/18 08:30 12/03/18 08:30 Intake and Output: 12/03/18 12/03/18 06:59 18:59 Intake Total 240 Balance 240 - Medications Medications: Current Medications Heparin Sodium (Porcine) (Heparin) 5,000 units SC Q8 [facility] Last Admin: 12/03/18 06:17 Dose: 5,000 units Sodium Chloride (Sodium Chloride 0.9%) 1,000 mls @ 75 mls/hr IV .[id number] [facility] Stop: 12/04/18 10:00 Last Admin: 12/03/18 10:59 Dose: 75 mls/hr Rosuvastatin Calcium (Crestor) 10 mg PO HS [facility] Last Admin: 12/02/18 21:09 Dose: 10 mg Zolpidem Tartrate (Ambien) 5 mg PO HS [facility] Last Admin: 12/02/18 21:09 Dose: 5 mg - Labs Labs: 12/02/18 11:24 12/03/18 07:43 - Constitutional Appears: Well - Respiratory Exam Respiratory Exam: Clear to Ausculation Bilateral - Cardiovascular Exam Cardiovascular Exam: RRR - GI/Abdominal Exam GI & Abdominal Exam: Soft, Normal Bowel Sounds. absent: Tenderness, Mass - Neurological Exam Neurological Exam: Alert, Oriented x3 Assessment and Plan (1) ARF (acute renal failure) Status: Acute (2) Anemia Assessment & Plan: skip bo dis. Stool OB=neg. Status: Acute (3) Chronic kidney disease, stage IV (severe) Status: Acute
[2018-12-03 12:59] LABS: FOLATE > 20.0 ng/mL
--- NOTE | 2018-12-03 18:48 | CP.PCM.PN ---
Subjective - Date & Time of Evaluation Date of Evaluation: 12/03/18 Time of Evaluation: 18:44 - Subjective Subjective: S: No fever. Feels allyson. Wnts to go home Objective - Vital Signs/Intake and Output Vital Signs (last 24 hours): Temp Pulse Resp BP Pulse Ox 97.4 F L 73 20 144/79 98 12/03/18 16:04 12/03/18 16:04 12/03/18 16:04 12/03/18 16:04 12/03/18 16:04 Intake and Output: 12/03/18 12/03/18 06:59 18:59 Intake Total 240 675 Balance 240 675 - Medications Medications: Current Medications Heparin Sodium (Porcine) (Heparin) 5,000 units SC Q8 [facility] Last Admin: 12/03/18 13:00 Dose: 5,000 units Sodium Chloride (Sodium Chloride 0.9%) 1,000 mls @ 75 mls/hr IV .[id number] [facility] Stop: 12/04/18 10:00 Last Admin: 12/03/18 10:59 Dose: 75 mls/hr Rosuvastatin Calcium (Crestor) 10 mg PO HS [facility] Last Admin: 12/02/18 21:09 Dose: 10 mg Zolpidem Tartrate (Ambien) 5 mg PO [facility] Last Admin: 12/02/18 21:09 Dose: 5 mg - Labs Labs: 12/02/18 11:24 12/03/18 07:43 - Constitutional Appears: No Acute Distress - Head Exam Head Exam: NORMAL INSPECTION - Eye Exam Eye Exam: Normal appearance - ENT Exam ENT Exam: Normal Exam - Neck Exam Neck Exam: Normal Inspection - Respiratory Exam Respiratory Exam: NORMAL BREATHING PATTERN - Cardiovascular Exam Cardiovascular Exam: REGULAR RHYTHM - GI/Abdominal Exam GI & Abdominal Exam: Soft - Rectal Exam Rectal Exam: Deferred - Extremities Exam Extremities Exam: Normal Inspection Assessment and Plan (1) ARF (acute renal failure) Status: Acute (2) Anemia Status: Acute - Assessment and Plan (Free Text) Assessment: A/P: renal work-up inconclusive. Want to go home and continue work-up out patient.
[2018-12-04] MEDS: Sodium Chloride 0.9% 1,000 ML IV SCH (00:48)
[2018-12-04 07:34] LABS: ALB/GLOB RATIO 0.5 (1.0-2.1); ALBUMIN 3.8 g/dL (3.5-5.0); AST/SGOT 32 U/L (17-59); BLOOD UREA NITROGEN 38 mg/dL (9-20); CALCIUM 8.5 mg/dl (8.6-10.4); GFR NON-AFRICAN AMERICAN 17
[2018-12-04 07:37] LABS: ALT/SGPT < 6 U/L (21-72); BASO % 0.4 % (0.0-2.0); EOS # 0.2 K/uL (0.0-0.7); EOS % 2.6 % (0.0-4.0); HEMOGLOBIN 7.2 g/dL (12.0-18.0); LYMPH # 3.2 K/uL (1.0-4.3); LYMPH % 40.2 % (20.0-40.0); MEAN CELL VOLUME 99.1 fL (80.0-94.0); MEAN CORPUSCULAR HEMOGLOBIN 33.8 pg (27.0-31.0); MEAN CORPUSCULAR HGB CONC 34.1 g/dL (33.0-37.0); MEAN PLATELET VOLUME 6.3 fL (7.2-11.7); MONO # 0.9 K/uL (0.0-0.8); MONO % 11.5 % (0.0-10.0); NEUT # 3.7 K/uL (1.8-7.0); NEUT % 45.3 % (50.0-75.0); RBC 2.13 Mil/uL (4.40-5.90); RED CELL DISTRIBUTION WIDTH 13.4 % (11.5-14.5); WHITE BLOOD COUNT 8.1 K/uL (4.8-10.8)
--- NOTE | 2018-12-04 08:01 | CP.PCM.PN ---
Subjective - Date & Time of Evaluation Date of Evaluation: 12/04/28 Time of Evaluation: 07:50 - Subjective Subjective: Pt feels well; SBP is fluctuating but only 140+ yesterday No CP, no SOB, no edema, no cough; Was able to sleep Objective - Vital Signs/Intake and Output Vital Signs (last 24 hours): Temp Pulse Resp BP Pulse Ox 97.5 F L 69 20 120/75 98 12/04/18 00:00 12/04/18 00:00 12/04/18 00:00 12/04/18 00:00 12/04/18 00:00 Intake and Output: 12/04/18 12/04/18 06:59 18:59 Intake Total 1400 Output Total 350 Balance 1050 - Medications Medications: Current Medications Heparin Sodium (Porcine) (Heparin) 5,000 units SC Q8 [facility] Last Admin: 12/04/18 05:43 Dose: 5,000 units Sodium Chloride (Sodium Chloride 0.9%) 1,000 mls @ 75 mls/hr IV .[id number] [facility] Stop: 12/04/18 10:00 Last Admin: 12/04/18 00:48 Dose: 75 mls/hr Rosuvastatin Calcium (Crestor) 10 mg PO [facility] Last Admin: 12/03/18 21:43 Dose: 10 mg Zolpidem Tartrate (Ambien) 5 mg PO [facility] Last Admin: 12/03/18 21:43 Dose: 5 mg - Labs Labs: 12/04/18 07:13 12/04/18 07:13 - Constitutional Appears: No Acute Distress - Eye Exam Eye Exam: Normal appearance - ENT Exam ENT Exam: Mucous Membranes Moist - Neck Exam Neck Exam: Full ROM. absent: Lymphadenopathy, Normal Inspection - Respiratory Exam Respiratory Exam: Clear to Ausculation Bilateral. absent: Rales, Rhonchi, Wheezes - Cardiovascular Exam Cardiovascular Exam: REGULAR RHYTHM, +S1, +S2. absent: Gallop, JVD - GI/Abdominal Exam GI & Abdominal Exam: Soft, Normal Bowel Sounds. absent: Tenderness, Mass - Extremities Exam Extremities Exam: Full ROM, Normal Capillary Refill. absent: Joint Swelling, Pedal Edema Assessment and Plan - Assessment and Plan (Free Text) Assessment: Acute Renal Failure/ CKD - unclear Etio BPH w/ high PSA Cont meds/ Discharge and cont OPD work up if clear c/o Urology/ Renal
--- NOTE | 2018-12-04 13:43 | CP.PCM.PN ---
Subjective - Date & Time of Evaluation Date of Evaluation: 12/04/18 Time of Evaluation: 13:40 - Subjective Subjective: Feels well creat decreased to 3.7 lytes acceptable immunofixation, SPEP still not back still very anemic Objective - Vital Signs/Intake and Output Vital Signs (last 24 hours): Temp Pulse Resp BP Pulse Ox 97.5 F L 69 20 120/75 98 12/04/18 00:00 12/04/18 00:00 12/04/18 00:00 12/04/18 00:00 12/04/18 00:00 Intake and Output: 12/04/18 12/04/18 06:59 18:59 Intake Total 1400 Output Total 350 Balance 1050 - Medications Medications: Current Medications Heparin Sodium (Porcine) (Heparin) 5,000 units SC Q8 [facility] Last Admin: 12/04/18 13:02 Dose: 5,000 units Rosuvastatin Calcium (Crestor) 10 mg PO HS [facility] Last Admin: 12/03/18 21:43 Dose: 10 mg Zolpidem Tartrate (Ambien) 5 mg PO [facility] Last Admin: 12/03/18 21:43 Dose: 5 mg - Labs Labs: 12/04/18 07:13 12/04/18 07:13 - Constitutional Appears: No Acute Distress, Chronically Ill - Head Exam Head Exam: ATRAUMATIC, NORMAL INSPECTION - Eye Exam Eye Exam: EOMI, Normal appearance - Neck Exam Neck Exam: Normal Inspection. absent: Tenderness - Respiratory Exam Respiratory Exam: Clear to Ausculation Bilateral, NORMAL BREATHING PATTERN - Cardiovascular Exam Cardiovascular Exam: REGULAR RHYTHM, +S1 - GI/Abdominal Exam GI & Abdominal Exam: Soft. absent: Tenderness - Extremities Exam Extremities Exam: Normal Inspection. absent: Tenderness - Neurological Exam Neurological Exam: Awake, CN II-XII Intact - Skin Skin Exam: Dry, Warm Assessment and Plan (1) Chronic kidney disease, stage IV (severe) Status: Acute (2) ARF (acute renal failure) Status: Acute (3) Anemia Status: Acute (4) Elevated total protein Status: Acute - Assessment and Plan (Free Text) Plan: Appears stable for discharge can follow up renal function as outpt hopefully will get results of paraproteinemia workup needs to go to heme as well
[2018-12-04 16:28] VITALS: BP 155/85; PULSE 90; TEMP 98.3; O2SAT 99
[2018-12-05 09:00] LABS: CREATININE, 24 HOUR URINE 1.68 g/24 h (0.50-2.15)
== END 2018-12-04 19:02 | disposition home or self-care (01) | DRG 683 ==
LOC: C.ER 13:06 → C.9E 17:57 → C.3T 18:30
PROVIDERS: ADMIT Internal Medicine; ATTEND Internal Medicine
DX: N17.9 Acute kidney failure, unspecified (principal); N39.0 Urinary tract infection, site not specified; N18.4 Chronic kidney disease, stage 4 (severe); N40.0 Benign prostatic hyperplasia without lower urinary tract symptoms; R31.29 Other microscopic hematuria; Z87.891 Personal history of nicotine dependence; D63.1 Anemia in chronic kidney disease

== ENCOUNTER 2018-12-16 11:27 | Outpatient (CLI) | payer BC | END 2018-12-16 11:28 | disposition home or self-care (01) | LOC: C.INFCTR 11:27 ==